=== PATIENT | male | born 1945 | race Caucasian/White ===

== ENCOUNTER 2017-06-11 18:50 | Inpatient (IN) | payer MEDICARE ==
[~2017-06-11] VITALS: Ht 188 cm; Wt 104.5 kg
[2017-06-11 18:54] VITALS: BP 138/81; PULSE 102; RESP 18; TEMP 97.8; O2SAT 98
--- NOTE | 2017-06-11 20:30 | PD ---
HPI Chief Complaint: Edema Time Seen by Provider: 20:19 Travel History International Travel<30 days: No Contact w/Intl Traveler<30days: No Traveled to known affect area: No History of Present Illness HPI 72-year-old male with non-small cell lung cancer on [place] presents to the emergency department for evaluation of a left lower extremity edema, erythema and pain that has worsened over the last day. Dr. Bennett is his oncologist. [facility] Social History Tobacco Use: No Allergies-Medications (Allergen,Severity, Reaction): Coded Allergies: No Known Allergies (Unverified , 06/11/17) Reported Meds & Prescriptions Reported Meds & Active Scripts Active Reported Zantac (Ranitidine HCl) 150 Mg Tab 150 Mg PO DAILY Lamisil (Terbinafine) 250 Mg Tab 250 Mg PO DAILY Tagrisso (Osimertinib Mesylate) 80 Mg Tablet 80 Mg PO DAILY Multiple Vitamin 1 Tab 1 Tab PO DAILY Review of Systems Except as stated in HPI: all other systems reviewed are Neg Physical Exam Narrative GENERAL: Well-developed, well-nourished in no apparent distress SKIN: Focused skin assessment warm/dry. HEAD: Atraumatic. Normocephalic. EYES: Pupils equal and round. No scleral icterus. No injection or drainage. ENT: No nasal bleeding or discharge. Mucous membranes pink and moist. NECK: Trachea midline. No JVD. CARDIOVASCULAR: Regular rate and rhythm. No murmur appreciated. RESPIRATORY: No accessory muscle use. Clear to auscultation. Breath sounds equal bilaterally. GASTROINTESTINAL: Abdomen soft, non-tender, nondistended. Hepatic and splenic margins not palpable. MUSCULOSKELETAL: No obvious deformities. No clubbing. No ecchymosis Left lower extremity-edema, erythema and tenderness palpation from the groin to distal lower extremity, focused on the anterior medial aspect of thigh and leg. +2 pitting edema. Dorsalis pedis pulse present. Neurovascularly intact NEUROLOGICAL: Awake and alert. No obvious cranial nerve deficits. Motor grossly within normal limits. Normal speech. PSYCHIATRIC: Appropriate mood and affect; insight and judgment normal. Data Data Last Documented VS Vital Signs Date Time Temp Pulse Resp B/P (MAP) Pulse Ox O2 Delivery O2 Flow Rate FiO2 06/11/17 22:31 98.9 126 20 114/59 (77) 98 Room Air Orders Orders Us Leg Venous Doppler (06/11/17 ) Complete Blood Count With Diff (06/11/17 20:30) Comprehensive Metabolic Panel (06/11/17 20:30) Act Partial Throm Time (Ptt) (06/11/17 20:30) Prothrombin Time / Inr (Pt) (06/11/17 20:30) Heparin Inj (Heparin Inj) (06/11/17 21:45) Heparin-D5w 25,000 U/250 Ml (Heparin-D5w (06/11/17 21:45) Cbc No Diff, Includes Plts (06/14/17 06:00) Act Partial Throm Time (Ptt) (06/12/17 04:37) Admit Order (Ed Use Only) (06/11/17 22:26) Labs Laboratory Tests Test 06/11/17 20:30 White Blood Count 4.9 TH/MM3 Red Blood Count 3.66 MIL/MM3 Hemoglobin 11.0 GM/DL Hematocrit 32.7 % Mean Corpuscular Volume 89.3 FL Mean Corpuscular Hemoglobin 30.2 PG Mean Corpuscular Hemoglobin Concent 33.8 % Red Cell Distribution Width 15.3 % Platelet Count 105 TH/MM3 Mean Platelet Volume 7.9 FL Neutrophils (%) (Auto) 77.7 % Lymphocytes (%) (Auto) 15.1 % Monocytes (%) (Auto) 6.4 % Eosinophils (%) (Auto) 0.5 % Basophils (%) (Auto) 0.3 % Neutrophils # (Auto) 3.8 TH/MM3 Lymphocytes # (Auto) 0.7 TH/MM3 Monocytes # (Auto) 0.3 TH/MM3 Eosinophils # (Auto) 0.0 TH/MM3 Basophils # (Auto) 0.0 TH/MM3 CBC Comment DIFF FINAL Differential Comment Prothrombin Time 10.0 SEC Prothromb Time International Ratio 1.0 RATIO Activated Partial Thromboplast Time 26.6 SEC Blood Urea Nitrogen 29 MG/DL Creatinine 1.31 MG/DL Random Glucose 125 MG/DL Total Protein 6.5 GM/DL Albumin 2.5 GM/DL Calcium Level 7.7 MG/DL Alkaline Phosphatase 92 U/L Aspartate Amino Transf (AST/SGOT) 46 U/L Alanine Aminotransferase (ALT/SGPT) 73 U/L Total Bilirubin 0.4 MG/DL Sodium Level 136 MEQ/L Potassium Level 4.0 MEQ/L Chloride Level 103 MEQ/L Carbon Dioxide Level 28.4 MEQ/L Anion Gap 5 MEQ/L Estimat Glomerular Filtration Rate 53 ML/MIN MDM Medical Decision Making Medical Screen Exam Complete: Yes Emergency Medical Condition: Yes Differential Diagnosis DVT, cellulitis, peripheral artery disease Narrative Course 72-year-old male with non-small cell carcinoma of the lung presents emergency department for evaluation of his left lower extremity pain and swelling that is worsened over the last 24 hours. Vital signs are stable. CBC & BMP Diagram 06/11/17 20:30 Total Protein 6.5, Albumin 2.5 L, Calcium Level 7.7 L, Alkaline Phosphatase 92, Aspartate Amino Transf (AST/SGOT) 46 H, Alanine Aminotransferase (ALT/SGPT) 73, Total Bilirubin 0.4 Last Impressions Lower Extremity Ultrasound 06/11/17 0000 Signed Impressions: Service Date/Time: Sunday, June 11, 2017 21:16 - CONCLUSION: Extensive deep venous thrombosis as above. Peter aG MD FACR It appears that patient has an extensive DVT to the left lower extremity. I discussed the findings with the family and patient. Patient likely has a DVT secondary to his history of cancer and recent immobilization. Note that he has no history of blood clots previously. Heparin initiated. Patient should be admitted for evaluation and treatment, bridge to Coumadin or appropriate NOACs. Diagnosis Primary Impression: DVT (deep venous thrombosis) Qualified Codes: I82.412 - Acute embolism and thrombosis of left femoral vein Admitting Information Admitting Physician Requests: Admit Condition: Stable Ayde Licona Jun 11, 2017 20:30
[2017-06-11] MEDS ORDERED: MULTTAB67 PO (20:32)
[2017-06-11] MEDS ORDERED: LAMI250T PO (20:32)
[2017-06-11] MEDS ORDERED: OSIM80TA PO (20:32)
[2017-06-11] MEDS ORDERED: ZANT150T2 PO (20:32)
[2017-06-11 21:01] LABS: AUTOMATED NEUTROPHIL # 3.8 TH/MM3 (1.8-7.7); BASOPHIL % 0.3 % (0.0-2.0); EOSINOPHIL % 0.5 % (0.0-4.0); HEMATOCRIT 32.7 % (39.0-51.0); LYMPH % 15.1 % (9.0-44.0); LYMPHOCYTE # 0.7 TH/MM3 (1.0-4.8); MEAN CELL VOLUME 89.3 FL (80.0-100.0); MEAN CORPUSCULAR HEMOGLOBIN 30.2 PG (27.0-34.0); MEAN CORPUSCULAR HGB CONC 33.8 % (32.0-36.0); MEAN PLATELET VOLUME 7.9 FL (7.0-11.0); MONO % 6.4 % (0.0-8.0); MONOCYTE # 0.3 TH/MM3 (0-0.9); NEUT % 77.7 % (16.0-70.0); PLATELET COUNT 105 TH/MM3 (150-450); RED BLOOD COUNT 3.66 MIL/MM3 (4.50-5.90); RED CELL DISTRIBUTION WIDTH 15.3 % (11.6-17.2); WHITE BLOOD COUNT 4.9 TH/MM3 (4.0-11.0)
[2017-06-11 21:12] LABS: ALBUMIN 2.5 GM/DL (3.4-5.0); AST (GOT) 46 U/L (15-37); BICARBONATE 28.4 MEQ/L (21.0-32.0); BLOOD UREA NITROGEN 29 MG/DL (7-18); CALCIUM 7.7 MG/DL (8.5-10.1); CHLORIDE 103 MEQ/L (98-107); CREATININE 1.31 MG/DL (0.60-1.30); GLOMERULAR FILTRATION RATE 53 ML/MIN (>89); GLUCOSE,RANDOM 125 MG/DL (74-106); SODIUM (NA) 136 MEQ/L (136-145)
[2017-06-11 21:13] LABS: ALT (GPT) 73 U/L (12-78)
[2017-06-11 21:15] LABS: ALKALINE PHOSPHATASE 92 U/L (45-117); TOTAL BILIRUBIN ADULT 0.4 MG/DL (0.2-1.0); TOTAL PROTEIN 6.5 GM/DL (6.4-8.2)
[2017-06-11] MEDS ORDERED: HEPARIN-D5W 25,000 U/250 ML 250 ML IV PRN (21:45)
[2017-06-11] MEDS ORDERED: HEPARIN SODIUM - IV 10,000 UNITS/10 ML VIAL IV ONE (21:45)
--- NOTE | 2017-06-11 21:54 | RADRPT ---
EXAM DATE/TIME: 06/11/2017 21:16 [facility] COMPARISON: No previous studies available for comparison. INDICATIONS : Left leg swelling. MEDICAL HISTORY : Lung cancer. SURGICAL HISTORY : Prostate biopsy. Tonsillectomy. Colonoscopy. ENCOUNTER: Initial ACUITY: 2 day PAIN SCORE: 4/10 LOCATION: Left leg. TECHNIQUE: Venous ultrasound of the leg was performed from the inguinal ligament to the proximal calf. Real-sydney e, color Doppler and spectral tracing, compression and augmentation techniques were used. FINDINGS: Extensive thrombus beginning below the knee extending to the inguinal ligament. The greater saphenou s vein is patent. CONCLUSION: Extensive deep venous thrombosis as above. Peter Ga MD FACR on June 11, 2017 at 21:50 Board Certified Radiologist. This report was verified electronically.
[2017-06-11] MEDS ORDERED: LACTULOSE SYRUP 20 GM/30 ML CUP PO PRN (22:30)
[2017-06-11] MEDS ORDERED: SENNOSIDES 8.6 MG TAB PO PRN (22:30)
[2017-06-11] MEDS ORDERED: MAGNESIUM HYDROXIDE SUSP 30 ML CUP PO PRN (22:30)
[2017-06-11] MEDS ORDERED: MORPHINE SULFATE 2 MG/ML SYRINGE IV PUSH PRN (22:30)
[2017-06-11] MEDS ORDERED: BISACODYL 10 MG SUPP RECTAL PRN (22:30)
[2017-06-11] MEDS ORDERED: ACETAMINOPHEN 325 MG TAB PO PRN (22:30)
[2017-06-11] MEDS ORDERED: ONDANSETRON HCL 4 MG/2 ML VIAL IVP PRN (22:30)
[2017-06-11] MEDS ORDERED: SODIUM CHLORIDE 0.9% FLUSH 10 ML FLUSH IV FLUSH PRN (22:30)
[2017-06-11] MEDS ORDERED: ACETAMINOPHEN/HYDROcodone 325 MG/5 MG TAB PO PRN (22:30)
[2017-06-11 22:31] VITALS: BP 114/59; PULSE 126; RESP 20; TEMP 98.9; O2SAT 98
--- NOTE | 2017-06-11 22:33 | HHI.HP ---
[facility] Atilio Murrell M.D. Admission Diagnosis extensive DVT R leg Diagnoses: (1) DVT (deep venous thrombosis) Diagnosis: Principal (2) Lung cancer Diagnosis: Principal (3) Renal insufficiency Diagnosis: Principal Travel History International Travel<30 Days: No Contact w/Intl Traveler <30 Da: No Traveled to Known Affected Are: No History of Present Illness This is a 72-year-old male with a PMH of Lung CA w/ Brain Mets who presented to the ER w/ complaints of left lower extremity pain and swelling. States symptoms started acutely today. Pain is severe, 10/10, constant, non-radiating , worse w/ movement. Denies fever, chills, chest pain, SOB or injury/trauma. Follows w/ Dr. Bennett for Lung CA, currently on Tagrisso. On arrival, BP 138/81 , HR 102, O2 sat 98% on RA, Afebrile. CBC essentially at baseline, platelets 105, previously 92 on 06/01/2017. Chemistry also at baseline, creatinine 1.31, previously 1.33 on 06/01/2017. INR 1.0. Doppler LE with extensive deep venous thrombosis. Started on Heparin gtt in ER. Pt denies previous h/o DVT. Review of Systems Except as stated in HPI: all other systems reviewed are Neg ROS: 14 point review of systems otherwise negative. Past Family Social History Past Medical History PMH: Lung CA w/ Brain Mets Past Surgical History PAST SURGICAL HISTORY: Tonsillectomy, Prostate Biopsy, Colonoscopy Allergies: Coded Allergies: No Known Allergies (Unverified , 06/11/17) Family History PAST FAMILY HISTORY: Reviewed. No h/o DM or CAD Social History PAST SOCIAL HISTORY: Negative for alcohol, tobacco or drugs. Physical Exam Vital Signs Vital Signs Date Time Temp Pulse Resp B/P (MAP) Pulse Ox O2 Delivery O2 Flow Rate FiO2 06/11/17 22:31 98.9 126 20 114/59 (77) 98 Room Air 06/11/17 18:54 97.8 102 18 138/81 (100) 98 Physical Exam PE: GENERAL: Very pleasant elderly white male in no acute distress. HEENT: PERRLA, EOMI. No scleral icterus or conjunctival pallor. No lid lag or facial droop. CARDIOVASCULAR: Regular rate and rhythm. No obvious murmurs to auscultation. No chest tenderness to palpation. RESPIRATORY: No obvious rhonchi or wheezing. Clear to auscultation. Breath sounds equal bilaterally. GASTROINTESTINAL: Abdomen soft, non-tender, nondistended. BS normal. MUSCULOSKELETAL: Extremities without clubbing, cyanosis. 2+ edema. No obvious deformities. Left leg with significant edema, warmth, pulses intact. NEUROLOGICAL: Awake, alert and oriented x4. No focal neurologic deficits. Moving both upper and lower extremities spontaneously. Laboratory Laboratory Tests Test 06/11/17 20:30 White Blood Count 4.9 Red Blood Count 3.66 Hemoglobin 11.0 Hematocrit 32.7 Mean Corpuscular Volume 89.3 Mean Corpuscular Hemoglobin 30.2 Mean Corpuscular Hemoglobin Concent 33.8 Red Cell Distribution Width 15.3 Platelet Count 105 Mean Platelet Volume 7.9 Neutrophils (%) (Auto) 77.7 Lymphocytes (%) (Auto) 15.1 Monocytes (%) (Auto) 6.4 Eosinophils (%) (Auto) 0.5 Basophils (%) (Auto) 0.3 Neutrophils # (Auto) 3.8 Lymphocytes # (Auto) 0.7 Monocytes # (Auto) 0.3 Eosinophils # (Auto) 0.0 Basophils # (Auto) 0.0 CBC Comment DIFF FINAL Differential Comment Prothrombin Time 10.0 Prothromb Time International Ratio 1.0 Activated Partial Thromboplast Time 26.6 Blood Urea Nitrogen 29 Creatinine 1.31 Random Glucose 125 Total Protein 6.5 Albumin 2.5 Calcium Level 7.7 Alkaline Phosphatase 92 Aspartate Amino Transf (AST/SGOT) 46 Alanine Aminotransferase (ALT/SGPT) 73 Total Bilirubin 0.4 Sodium Level 136 Potassium Level 4.0 Chloride Level 103 Carbon Dioxide Level 28.4 Anion Gap 5 Estimat Glomerular Filtration Rate 53 Result Diagram: 06/11/17202906/11/172029 Caprini VTE Risk Assessment Caprini VTE Risk Assessment: Mod/High Risk (score >= 2) Caprini Risk Assessment Model Point Value = 1 Point Value = 2 Point Value = 3 Point Value = 5 Age 41-60 Minor surgery BMI > 25 kg/m2 Swollen legs Varicose veins or History of unexplained or recurrent spontaneous Oral contraceptives or hormone replacement Sepsis (< 1 month) Serious lung disease, including pneumonia (< 1 month) Abnormal pulmonary function Acute myocardial infarction Congestive heart failure (< 1 month) History of inflammatory bowel disease Medical patient at bed rest Age 61-74 Arthroscopic surgery Major open surgery (> 45 min) Laparoscopic surgery (> 45 min) Malignancy Confined to bed (> 72 hours) Immobilizing plaster cast Central venous access Age >= 75 History of VTE Family history of VTE Factor V Leiden Prothrombin [id number] Lupus anticoagulant Anticardiolipin antibodies Elevated serum homocysteine Heparin-induced thrombocytopenia Other congenital or acquired thrombophilia Stroke (< 1 month) Elective arthroplasty Hip, pelvis, or leg fracture Acute spinal cord injury (< 1 month) Prophylaxis Regimen Total Risk Factor Score Risk Level Prophylaxis Regimen 0-1 Low Early ambulation 2 Moderate Order ONE of the following: *Sequential Compression Device (SCD) *Heparin 5000 units SQ BID 3-4 Higher Order ONE of the following medications: *Heparin 5000 units SQ TID *Enoxaparin/Lovenox 40 mg SQ daily (WT < 150 kg, CrCl > 30 mL/min) *Enoxaparin/Lovenox 30 mg SQ daily (WT < 150 kg, CrCl > 10-29 mL/min) *Enoxaparin/Lovenox 30 mg SQ BID (WT < 150 kg, CrCl > 30 mL/min) AND/OR *Sequential Compression Device (SCD) 5 or more Highest Order ONE of the following medications: *Heparin 5000 units SQ TID (Preferred with Epidurals) *Enoxaparin/Lovenox 40 mg SQ daily (WT < 150 kg, CrCl > 30 mL/min) *Enoxaparin/Lovenox 30 mg SQ daily (WT < 150 kg, CrCl > 10-29 mL/min) *Enoxaparin/Lovenox 30 mg SQ BID (WT < 150 kg, CrCl > 30 mL/min) AND *Sequential Compression Device (SCD) Assessment and Plan Problem List: (1) DVT (deep venous thrombosis) ICD Code: I82.409 - Acute embolism and thrombosis of unspecified deep veins of unspecified lower extremity Status: Acute (2) Renal insufficiency ICD Code: N28.9 - Disorder of kidney and ureter, unspecified (3) Lung cancer ICD Code: C34.90 - Malignant neoplasm of unspecified part of unspecified bronchus or lung Assessment and Plan A/P: 1. DVT: Acute. Doppler LE w/ extensive DVT of LLE, images reviewed by me, likely secondary to underling CA. Started on Heparin gtt in ER. In light of h/ o Lung CA w/ CRIB CLERK Mets, will check CT Head to eval for possible hemorrhage/ edema. Consult Dr. Bennett for further recommendations regarding anticoagulation. No c/o chest pain or SOB. 2. Lung CA w/ Mets: Follows w/ Dr Bennett, tapered off Decadron, plan for outpatient MRI 06/30/17, will proceed w/ CT Head at this time, possible MRI after eval by Oncology. 3. Renal Insufficiency: Acute on Chronic. Creatinine 1.31, previously 1.33 on 06/01/2017 IVF for hydration, repeat labs in a.m. 4. DVT Prophylaxis: On Heparin gtt for acute DVT as above. 5. Social work for DC planning as needed. 6. Case discussed at length with the ER physician, lab/record/imaging reviewed by me. CT Head reviewed by me...right frontal and right parietal intra-axial masses no longer seen, minimal residual right vasogenic edema, no acute intracranial hemorrhage. Will continue w/ anticoagulation as above. Physician Certification 2 Midnight Certification Type: Admission for Inpatient Services Order for Inpatient Services The services are ordered in accordance with Medicare regulations or non- Medicare payer requirements, as applicable. In the case of services not specified as inpatient-only, they are appropriately provided as inpatient services in accordance with the 2-midnight benchmark. Estimated LOS (days): 2 days is the estimated time the patient will need to remain in the hospital, assuming treatment plan goals are met and no additional complications. Post-Hospital Plan: Not yet determined Problem Qualifiers (1) DVT (deep venous thrombosis): Qualified Codes: I82.412 - Acute embolism and thrombosis of left femoral vein Kristi Maguire MD Jun 11, 2017 22:33
--- NOTE | 2017-06-11 23:32 | RADRPT ---
EXAM DATE/TIME: 06/11/2017 23:14 [facility] COMPARISON: CT SIMULATION, May 04, 2017, 12:56. INDICATIONS : Lung cancer, evaluate metastatic disease. RADIATION DOSE: 38.86 CTDIvol (mGy) MEDICAL HISTORY : Carcinoma, lung. SURGICAL HISTORY : None. ENCOUNTER: Initial ACUITY: 1 day PAIN SCALE: 0/10 LOCATION: cranial TECHNIQUE: Multiple contiguous axial images were obtained of the head. Using automated exposure control and adj ustment of the mA and/or kV according to patient size, radiation dose was kept as low as reasonably a chievable to obtain optimal diagnostic quality images. DICOM format image data is available electro nically for review and comparison. FINDINGS: CEREBRUM: There is minimal residual hypodensity in the posterior right frontal white matter. The other areas of previously seen vasogenic edema in the right parietal and right frontal lobes on the scan of 05/04/19 18 are not seen on the current study. Discrete defined masses are no longer seen. No evidence of mass effect. Ventricles within normal limits. No acute intracranial hemorrhage or extra axial fluid colle ction. Vega matter-white matter degeneration within normal limits. POSTERIOR FOSSA: The cerebellum and brainstem are intact. The 4th ventricle is midline. The cerebellopontine angle i s unremarkable. EXTRACRANIAL: The visualized portion of the orbits is intact. SKULL: The calvaria is intact. No evidence of skull fracture. CONCLUSION: Right frontal and right parietal intra-axial masses are no longer seen. Minimal residual of right par ietal vasogenic edema. No mass effect. No evidence of acute intracranial hemorrhage or acute infarct. Roderick Jauregui MD on June 11, 2017 at 23:26 Board Certified Radiologist. This report was verified electronically.
[2017-06-12] VITALS (8 sets, daily range): BP systolic 99–139; BP diastolic 52–75; PULSE 79–151; RESP 17–18; TEMP 97.9–98.9; O2SAT 95–97
[2017-06-12 04:39] LABS: AUTOMATED NEUTROPHIL # 3.5 TH/MM3 (1.8-7.7); BASOPHIL % 0.3 % (0.0-2.0); EOSINOPHIL % 0.5 % (0.0-4.0); HEMOGLOBIN 10.3 GM/DL (13.0-17.0); LYMPH % 17.3 % (9.0-44.0); LYMPHOCYTE # 0.8 TH/MM3 (1.0-4.8); MEAN CELL VOLUME 88.7 FL (80.0-100.0); MEAN CORPUSCULAR HEMOGLOBIN 30.5 PG (27.0-34.0); MEAN CORPUSCULAR HGB CONC 34.4 % (32.0-36.0); MEAN PLATELET VOLUME 7.8 FL (7.0-11.0); MONO % 8.2 % (0.0-8.0); MONOCYTE # 0.4 TH/MM3 (0-0.9); NEUT % 73.7 % (16.0-70.0); PLATELET COUNT 97 TH/MM3 (150-450); RED BLOOD COUNT 3.39 MIL/MM3 (4.50-5.90); RED CELL DISTRIBUTION WIDTH 15.3 % (11.6-17.2); WHITE BLOOD COUNT 4.7 TH/MM3 (4.0-11.0)
[2017-06-12 05:03] LABS: ALT (GPT) 59 U/L (12-78); AST (GOT) 30 U/L (15-37); BICARBONATE 24.4 MEQ/L (21.0-32.0); BLOOD UREA NITROGEN 26 MG/DL (7-18); CALCIUM 7.6 MG/DL (8.5-10.1); CHLORIDE 106 MEQ/L (98-107); GLOMERULAR FILTRATION RATE 59 ML/MIN (>89); GLUCOSE,RANDOM 127 MG/DL (74-106); SODIUM (NA) 139 MEQ/L (136-145)
[2017-06-12 05:05] LABS: ALKALINE PHOSPHATASE 78 U/L (45-117); TOTAL BILIRUBIN ADULT 0.5 MG/DL (0.2-1.0); TOTAL PROTEIN 5.7 GM/DL (6.4-8.2)
--- NOTE | 2017-06-12 08:30 | HHI.PR ---
Subjective Remarks This is a 72-year-old male with a PMH of Lung CA w/ Brain Mets who presented to the ER w/ complaints of left lower extremity pain and swelling. States symptoms started acutely today. Pain is severe, 10/10, constant, non- radiating, worse w/ movement. Denies fever, chills, chest pain, SOB or injury/trauma. Follows w/ Dr. Bennett for Lung CA, currently on Tagrisso. On arrival, BP 138/81, HR 102, O2 sat 98% on RA, Afebrile. CBC essentially at baseline, platelets 105, previously 92 on 06/01/2017. Chemistry also at baseline, creatinine 1.31, previously 1.33 on 06/01/2017. INR 1.0. Doppler LE with extensive deep venous thrombosis. Started on Heparin gtt in ER. Pt denies previous h/o DVT. 06/12: Seen in his bedroom awaiting for drug regulatory affairs specialist consult, stable no nausea, vomit or diarrhea. Objective Vital Signs Date Time Temp Pulse Resp B/P (MAP) Pulse Ox O2 Delivery O2 Flow Rate FiO2 06/12/17 04:10 98.1 97 18 108/58 (75) 96 06/12/17 00:07 98.3 83 18 106/52 (70) 96 06/11/17 22:31 98.9 126 20 114/59 (77) 98 Room Air 06/11/17 18:54 97.8 102 18 138/81 (100) 98 I/O 06/11/17 06/11/17 06/11/17 06/12/17 06/12/17 06/12/17 07:00 15:00 23:00 07:00 15:00 23:00 Intake Total 240 ml Balance 240 ml Intake Oral 240 ml # Voids 1 # Bowel Movements 0 Result Diagram: 06/12/17 0416 06/12/17 0416 Imaging Last Impressions Lower Extremity Ultrasound 06/11/17 0000 Signed Impressions: Service Date/Time: Sunday, June 11, 2017 21:16 - CONCLUSION: Extensive deep venous thrombosis as above. Peter Ga MD FACR Head CT 06/11/17 0000 Signed Impressions: Service Date/Time: Sunday, June 11, 2017 23:14 - CONCLUSION: Right frontal and right parietal intra-axial masses are no longer seen. Minimal residual of right parietal vasogenic edema. No mass effect. No evidence of acute intracranial hemorrhage or acute infarct. Roderick Jaureugi MD Procedures None Other Results Laboratory Tests Test 06/11/17 20:30 06/12/17 04:16 Prothrombin Time 10.0 SEC Prothromb Time International Ratio 1.0 RATIO White Blood Count 4.7 TH/MM3 Red Blood Count 3.39 MIL/MM3 Hemoglobin 10.3 GM/DL Hematocrit 30.0 % Mean Corpuscular Volume 88.7 FL Mean Corpuscular Hemoglobin 30.5 PG Mean Corpuscular Hemoglobin Concent 34.4 % Red Cell Distribution Width 15.3 % Platelet Count 97 TH/MM3 Mean Platelet Volume 7.8 FL Neutrophils (%) (Auto) 73.7 % Lymphocytes (%) (Auto) 17.3 % Monocytes (%) (Auto) 8.2 % Eosinophils (%) (Auto) 0.5 % Basophils (%) (Auto) 0.3 % Neutrophils # (Auto) 3.5 TH/MM3 Lymphocytes # (Auto) 0.8 TH/MM3 Monocytes # (Auto) 0.4 TH/MM3 Eosinophils # (Auto) 0.0 TH/MM3 Basophils # (Auto) 0.0 TH/MM3 CBC Comment AUTO DIFF Differential Comment AUTO DIFF CONFIRMED Platelet Estimate LOW Platelet Morphology Comment NORMAL Activated Partial Thromboplast Time 55.5 SEC Blood Urea Nitrogen 26 MG/DL Creatinine 1.20 MG/DL Random Glucose 127 MG/DL Total Protein 5.7 GM/DL Albumin 2.0 GM/DL Calcium Level 7.6 MG/DL Alkaline Phosphatase 78 U/L Aspartate Amino Transf (AST/SGOT) 30 U/L Alanine Aminotransferase (ALT/SGPT) 59 U/L Total Bilirubin 0.5 MG/DL Sodium Level 139 MEQ/L Potassium Level 3.7 MEQ/L Chloride Level 106 MEQ/L Carbon Dioxide Level 24.4 MEQ/L Anion Gap 9 MEQ/L Estimat Glomerular Filtration Rate 59 ML/MIN Objective Remarks GENERAL: Very pleasant elderly white male in no acute distress. HEENT: PERRLA, EOMI. No scleral icterus or conjunctival pallor. No lid lag or facial droop. CARDIOVASCULAR: Regular rate and rhythm. No obvious murmurs to auscultation. No chest tenderness to palpation. RESPIRATORY: No obvious rhonchi or wheezing. Clear to auscultation. Breath sounds equal bilaterally. GASTROINTESTINAL: Abdomen soft, non-tender, nondistended. BS normal. MUSCULOSKELETAL: Extremities without clubbing, cyanosis. 2+ edema. No obvious deformities. Left leg with significant edema, warmth, pulses intact. NEUROLOGICAL: Awake, alert and oriented x4. No focal neurologic deficits. Moving both upper and lower extremities spontaneously. Medications and IVs Current Medications Medications (Trade) Dose Ordered Sig/Justin Route Start Time Stop Time Status Last Admin Heparin Sodium/ Dextrose 250 ml @ 18 mls/hr TITRATE PRN IV 06/11/17 21:45 06/11/17 22:10 (NS Flush) 2 ml UNSCH PRN IV FLUSH 06/11/17 22:30 (NS Flush) 2 ml BID IV FLUSH 06/12/17 09:00 (Zofran Inj) 4 mg Q6H PRN IVP 06/11/17 22:30 (Tylenol) 650 mg Q6H PRN PO 06/11/17 22:30 ([place] 5-325 Mg) 1 tab Q4H PRN PO 06/11/17 22:30 (Morphine Inj) 2 mg Q3H PRN IV PUSH 06/11/17 22:30 (Migdalia-Colace) 1 tab BID PO 06/12/17 09:00 (Milk Of Magnesia Liq) 30 ml Q12H PRN PO 06/11/17 22:30 (Senokot) 17.2 mg Q12H PRN PO 06/11/17 22:30 (Dulcolax Supp) 10 mg DAILY PRN RECTAL 06/11/17 22:30 (Lactulose Liq) 30 ml DAILY PRN PO 06/11/17 22:30 (Theragran) 1 tab DAILY PO 06/12/17 09:00 Patient Own Medication PT OWN MED: (Osimertinib Mesyl... DAILY PO 06/12/17 09:00 Future Hold (Pepcid) 20 mg DAILY PO 06/12/17 09:00 (Flu (Quadrivalent) Vaccine Inj) 0.5 ml ONCE ONCE IM 06/13/17 10:00 06/13/17 10:01 A/P Assessment and Plan (1) DVT (deep venous thrombosis) ICD Code: I82.409 - Acute embolism and thrombosis of unspecified deep veins of unspecified lower extremity Status: Acute (2) Renal insufficiency ICD Code: N28.9 - Disorder of kidney and ureter, unspecified (3) Lung cancer ICD Code: C34.90 - Malignant neoplasm of unspecified part of unspecified bronchus or lung 1. DVT: Acute. Doppler LE w/ extensive DVT of LLE, images reviewed by me, likely secondary to underling CA. Started on Heparin gtt in ER. In light of h/ o Lung CA w/ NUCLEAR SCIENTIST Mets, will check CT Head to eval for possible hemorrhage/ edema. Consult Dr. Bennett for further recommendations regarding anticoagulation. No c/o chest pain or SOB. 2. Lung CA w/ Mets: Follows w/ Dr Bennett, tapered off Decadron, plan for outpatient MRI 06/30/17, will proceed w/ CT Head at this time, possible MRI after eval by Oncology. 3. Renal Insufficiency: Acute on Chronic. Creatinine 1.31, previously 1.33 on 06/01/2017 IVF for hydration. DVT Prophylaxis: On Heparin gtt for acute DVT as above. Khang Mendoza MD Jun 12, 2017 08:30
[2017-06-12] MEDS: FAMOTIDINE 20 MG TAB PO SCH (08:43)
[2017-06-12] MEDS: MULTIVITAMIN TAB PO SCH (08:43)
[2017-06-12] MEDS: DOCUSATE SODIUM 50 MG/SENNA 8.6 MG TAB PO SCH ×2 (08:43→21:00)
[2017-06-12] MEDS: SODIUM CHLORIDE 0.9% FLUSH 10 ML FLUSH IV FLUSH SCH ×2 (08:45→21:00)
[2017-06-12] MEDS ORDERED: OSIMERTINIB MESYLATE 80 MG PO SCH (09:00)
--- NOTE | 2017-06-12 12:46 | MB ---
cc: Linda Velez MD,Khang Bennett,Wander MENSAH DATE: 06/12/2017 REFERRING PHYSICIAN: Dr. Khang Mohr. CHIEF COMPLAINT: Dr. Khang Mohr requests a consultation for Mr. Degroot regarding a stage IV non-small cell lung cancer with MINE WIRER metastatic disease and new left lower extremity deep vein thromboses. HISTORY OF PRESENT ILLNESS: Mr. Degroot is a 72-year-old man with a history of non-small cell lung cancer with exon mutation 21, diagnosed in 2014. He was treated with Tarceva until progression. He has developed MINE WIRER metastatic disease in April 2017, which was treated with stereotactic radiosurgery under the care of Dr. Ridley. He is under the care of Dr. Bennett. His most recent CT PET scan on 05/13/2017 shows improvement of post-radiation pneumonitis in the lung. There is some uptake in the left side of the manubrium. His extracranial disease appears to be well controlled. He was in the process of being tapered off Decadron for his MINE WIRER metastatic disease. He has had some steroid myopathy. Mr. Degroot has been less active because of steroid myopathy. He has been staying around on the couch, getting out of bed, but limited ambulation. He presented with left lower extremity edema, erythema, and pain that worsened over the last day. He underwent lower extremity imaging on 06/11/2017. The findings show extensive thrombus being below the knee to the inguinal ligament. The greater saphenous vein was patent. He was started on unfractionated heparin. He feels that the leg swelling is diminished. Noted is mild thrombocytopenia from 06/01/2017. He was thrombocytopenic on the day of the consultation. Interestingly, his hemoglobin is decreased. The greater saphenous vein was patent. Review of his labs show a normal CBC dated 01/19/2017. His white count was elevated from 05/17/2017. His platelet count was 220,000. On 06/01/2017, his platelet count had decreased to 92,000. Hemoglobin is normal. White blood cell count is 8.8. On day of admission, his hemoglobin is down to 11.0, platelet count 105, white blood cell count of 4.9. The day after, his hemoglobin went down further to 10.3 and platelet count of 97,000. He denies any bleeding. He denies any GI upset. He has some mild renal insufficiency that looks stable. His glucose is mildly elevated and calcium is decreased. His liver function has normalized. REVIEW OF SYSTEMS: Denies any headaches. No fevers, chills or night sweats. He has generalized weakness for which he was staying less active. The rest of his review of systems is negative. PAST MEDICAL HISTORY: Metastatic non-small cell lung cancer, history of prostate cancer, MINE WIRER metastatic disease. PAST SURGICAL HISTORY: Tonsillectomy, prostate biopsy, colonoscopy. ALLERGIES: NO KNOWN DRUG ALLERGIES. FAMILY HISTORY: No family history of cancer. SOCIAL HISTORY: He is , lives with his . Denies any tobacco, alcohol or illicit drug use. CURRENT MEDICATIONS: Include Migdalia-Colace, multivitamin, Pepcid, Zofran p.r.n., Graham p.r.n., unfractionated heparin. PHYSICAL EXAMINATION: VITAL SIGNS: Temperature 97.9, heart rate 105, respiratory rate 17, blood pressure 102/75, saturation 95%. GENERAL: Mr. Degroot is a well-developed, well-nourished, 72-year-old man in no acute distress. HEENT: His pupils are round, reactive to light and accommodation. Oropharynx is clear. NECK: Supple. LUNGS: Clear anteriorly. CARDIOVASCULAR: Reveals mild tachycardia. ABDOMEN: Benign. LOWER EXTREMITIES: With left leg more prominent than the right. There is 1+ pitting edema on the left and trace on the right. Good pulses. NEUROLOGIC: Nonfocal. LABORATORY DATA: As described above. CT of the head shows right frontoparietal mass is no longer seen. There is no evidence of acute intracranial hemorrhage or infarct. ASSESSMENT AND PLAN: Ms. Degroot is a 72-year-old man, well known patient to Dr. Wander Bennett with metastatic non-small cell lung cancer. He has MINE WIRER metastatic disease that was addressed with radiation. CT scan only shows there is some resolution. We discussed the development of left lower extremity deep vein thromboses provoked by his cancer and relative immobility. The immobility was attributed to the steroids, which he is being tapered. We discussed the options for anticoagulant therapy from Coumadin to low molecular weight heparin to a new oral anticoagulant Eliquis. His renal function is stable. He prefers to take an oral agent. We discussed in general terms the mechanism of action of the anticoagulant therapy. There is no reversal agent for the new oral anticoagulants at present. We will ensure that his renal function is stable. There is no overt sign of bleeding in order to start. I will take him off the unfractionated heparin and switch him to low molecular weight heparin. We will consult with case management in order to get him a free sample for the first month of Eliquis. We will start at 5 mg twice a day. In the meantime, we will monitor his CBC and platelet count. I will check in the morning. Anticipate that the hemoglobin would remain stable and hopefully platelet count would increase. Anticipate we could discharge him tomorrow pending stability of the CBC. There are no overt signs of bleeding. Mr. Degroot's questions were answered to his satisfaction. Information on Eliquis will be provided. MD GRICELDA Ramsey/PREMA , 12:09 PM , 12:45 PM
[2017-06-12] MEDS: ENOXAPARIN SODIUM 100 MG/ML SYRINGE SQ SCH (13:25)
[2017-06-13] MEDS: ENOXAPARIN SODIUM 100 MG/ML SYRINGE SQ SCH (00:53)
[2017-06-13 04:50] VITALS: BP 93/52; PULSE 148; RESP 17; TEMP 98.1; O2SAT 96
[2017-06-13] MEDS ORDERED: SODIUM CHLORID 0.9% 500 ML INJ 500 ML IV ONE (05:00)
[2017-06-13] MEDS: SODIUM CHLOR 0.9% 1000 ML INJ 1,000 ML IV SCH ×2 (05:08→12:45)
[2017-06-13 05:41] VITALS: PULSE 93
[2017-06-13 08:00] VITALS: BP 131/58; PULSE 93; RESP 17; TEMP 98.2; O2SAT 92
[2017-06-13] MEDS: SODIUM CHLORIDE 0.9% FLUSH 10 ML FLUSH IV FLUSH SCH (08:51)
[2017-06-13] MEDS: FAMOTIDINE 20 MG TAB PO SCH (08:52)
[2017-06-13] MEDS: MULTIVITAMIN TAB PO SCH (08:52)
[2017-06-13] MEDS: DOCUSATE SODIUM 50 MG/SENNA 8.6 MG TAB PO SCH (08:52)
[2017-06-13] MEDS ORDERED: INFLUENZA VIRUS VACCINE (QUADRIVALENT) 0.5 ML SYR IM ONE (10:00)
[2017-06-13 12:36] VITALS: BP 116/67; PULSE 88; RESP 18; TEMP 97.9; O2SAT 97
--- NOTE | 2017-06-13 13:11 | PD.ONC.PN ---
Subjective Subjective Remarks Afebrile overnight Patient reports he feels great and is looking forward to going home States his swelling is much improved in the left lower extremity Objective Data Date Time Temp Pulse Resp B/P (MAP) Pulse Ox O2 Delivery O2 Flow Rate FiO2 06/13/17 12:36 97.9 88 18 116/67 (83) 97 06/13/17 08:00 98.2 93 17 131/58 (82) 92 06/13/17 05:41 93 06/13/17 04:50 98.1 148 17 93/52 (66) 96 06/12/17 23:45 98.9 101 18 125/58 (80) 95 06/12/17 19:45 98.1 94 18 139/71 (93) 97 06/12/17 16:00 98.2 148 17 99/59 (72) 95 06/13/17 06/13/17 06/13/17 07:00 15:00 23:00 Intake Total 480 ml Balance 480 ml Result Diagram: 06/12/17 0416 06/12/17 0416 Administered Medications Medications (Trade) Dose Ordered Sig/Justin Route PRN Reason Start Time Stop Time Status Last Admin Dose Admin Sodium Chloride (NS Flush) 2 ml BID IV FLUSH 06/12/17 09:00 06/12/17 21:00 Senna/Docusate Sodium (Migdalia-Colace) 1 tab BID PO 06/12/17 09:00 06/13/17 08:52 Multivitamins (Theragran) 1 tab DAILY PO 06/12/17 09:00 06/13/17 08:52 Famotidine (Pepcid) 20 mg DAILY PO 06/12/17 09:00 06/13/17 08:52 Sodium Chloride 1,000 ml @ 125 mls/hr Q8H IV 06/13/17 05:00 06/13/17 05:08 Objective Remarks GENERAL: Older gentleman, walking around his room in no obvious distress SKIN: Warm and dry. HEAD: Normocephalic. EYES: No injection or drainage. NECK: Supple, trachea midline. CARDIOVASCULAR: Regular rate and rhythm without murmurs. RESPIRATORY: Breath sounds equal bilaterally. No accessory muscle use. GASTROINTESTINAL: Abdomen soft, non-tender, nondistended. EXTREMITIES: 3+ edema to left lower extremity MUSCULOSKELETAL: Adequate muscle tone. NEUROLOGICAL: No obvious focal deficit. Awake, alert, and oriented x3. Assessment/Plan Problem List: (1) Lung cancer ICD Codes: C34.90 - Malignant neoplasm of unspecified part of unspecified bronchus or lung Plan: --Future chemo will be discussed outpatient with Dr. Bennett Hx/Workup: The patient was originally diagnosed with lung cancer in 2014. He was treated with Tarceva until progression. In April 2017 he developed WEIGHER AND CHARGER metastatic disease and was treated with stereotactic radiosurgery under the care of Dr. Ridley. His most recent CT PET scan in May showed improvement of postradiation pneumonitis in the lung. He has been less active due to steroid myopathy. He presents with left lower extremity edema and pain (2) DVT (deep venous thrombosis) ICD Codes: I82.409 - Acute embolism and thrombosis of unspecified deep veins of unspecified lower extremity Status: Acute Plan: --Provoked due to cancer, immobility --We will have patient take Eliquis 5 mg twice daily for treatment Assessment 72-year-old male with diagnosis of metastatic lung cancer admitted with DVT to the left lower extremity Plan 1. We will switch patient from Lovenox to Eliquis today. 2. I discussed with him that due to the current dosing of the Lovenox, we will stretch out his dose by 1 hour so that he can take the Eliquis during times when he is awake during the day. 3. Check CBC today. If stable he is clear for discharge from oncology standpoint 4. We discussed that he should follow-up in clinic one day later this week to check CBC. Attending Statement The exam, history, and the medical decision-making described in the above note were completed with the assistance of the mid-level provider. I reviewed and agree with the findings presented. I attest that I had a [id number] encounter with the patient on the same day, and personally performed and documented my assessment and findings in the medical record. Pt ok for DC from heme/onc standpoint. Pending to start dose of Eliquis late this afternoon. Next dose OK for AM 06/14/17. Rx for Eliquis and sample card at pt's bedside, plans to fill this afternoon. Plan to fu w/ Oncology clinic w/ Dr. Bennett this week. Problem Qualifiers (1) DVT (deep venous thrombosis): Qualified Codes: I82.412 - Acute embolism and thrombosis of left femoral vein Bird,Lindseyjoseph HANCOCK Jun 13, 2017 13:11 Linda Velez MD Jun 13, 2017 13:30
[2017-06-13] MEDS ORDERED: APIX5TAB PO (13:27)
[2017-06-13 13:45] LABS: AUTOMATED NEUTROPHIL # 4.2 TH/MM3 (1.8-7.7); BASOPHIL % 0.3 % (0.0-2.0); EOSINOPHIL % 0.4 % (0.0-4.0); HEMATOCRIT 31.5 % (39.0-51.0); HEMOGLOBIN 10.5 GM/DL (13.0-17.0); LYMPH % 13.9 % (9.0-44.0); LYMPHOCYTE # 0.8 TH/MM3 (1.0-4.8); MEAN CELL VOLUME 89.7 FL (80.0-100.0); MEAN CORPUSCULAR HGB CONC 33.5 % (32.0-36.0); MEAN PLATELET VOLUME 7.8 FL (7.0-11.0); MONO % 8.5 % (0.0-8.0); MONOCYTE # 0.5 TH/MM3 (0-0.9); NEUT % 76.9 % (16.0-70.0); PLATELET COUNT 166 TH/MM3 (150-450); RED BLOOD COUNT 3.51 MIL/MM3 (4.50-5.90); WHITE BLOOD COUNT 5.4 TH/MM3 (4.0-11.0)
[2017-06-13] MEDS ORDERED: APIXABAN 5 MG TABLET PO SCH (14:00)
--- NOTE | 2017-06-13 15:21 | HHI.PR ---
Subjective Remarks This is a 72-year-old male with a PMH of Lung CA w/ Brain Mets who presented to the ER w/ complaints of left lower extremity pain and swelling. States symptoms started acutely today. Pain is severe, 10/10, constant, non- radiating, worse w/ movement. Denies fever, chills, chest pain, SOB or injury/trauma. Follows w/ Dr. Bennett for Lung CA, currently on Tagrisso. On arrival, BP 138/81, HR 102, O2 sat 98% on RA, Afebrile. CBC essentially at baseline, platelets 105, previously 92 on 06/01/2017. Chemistry also at baseline, creatinine 1.31, previously 1.33 on 06/01/2017. INR 1.0. Doppler LE with extensive deep venous thrombosis. Started on Heparin gtt in ER. Pt denies previous h/o DVT. 06/12: Seen in his bedroom awaiting for end user support specialist consult. 06/13: Stable from environmental permitting specialist standpoint, no nausea, vomit or diarrhea recommended for discharge to Home now on Eliquis. Objective Vital Signs Date Time Temp Pulse Resp B/P (MAP) Pulse Ox O2 Delivery O2 Flow Rate FiO2 06/13/17 12:36 97.9 88 18 116/67 (83) 97 06/13/17 08:00 98.2 93 17 131/58 (82) 92 06/13/17 05:41 93 06/13/17 04:50 98.1 148 17 93/52 (66) 96 06/12/17 23:45 98.9 101 18 125/58 (80) 95 06/12/17 19:45 98.1 94 18 139/71 (93) 97 06/12/17 16:00 98.2 148 17 99/59 (72) 95 I/O 06/12/17 06/12/17 06/12/17 06/13/17 06/13/17 06/13/17 07:00 15:00 23:00 07:00 15:00 23:00 Intake Total 240 ml 480 ml 480 ml Balance 240 ml 480 ml 480 ml Intake Oral 240 ml 480 ml 480 ml # Voids 1 5 3 # Bowel Movements 0 0 0 Result Diagram: 06/13/17 1315 06/12/17 0416 Imaging Last Impressions Lower Extremity Ultrasound 06/11/17 0000 Signed Impressions: Service Date/Time: Sunday, June 11, 2017 21:16 - CONCLUSION: Extensive deep venous thrombosis as above. Peter Ga MD FACR Head CT 06/11/17 0000 Signed Impressions: Service Date/Time: Sunday, June 11, 2017 23:14 - CONCLUSION: Right frontal and right parietal intra-axial masses are no longer seen. Minimal residual of right parietal vasogenic edema. No mass effect. No evidence of acute intracranial hemorrhage or acute infarct. Roderick Jauregui MD Procedures None Other Results Laboratory Tests Test 06/11/17 20:30 06/12/17 04:16 06/12/17 10:44 06/13/17 13:15 Prothrombin Time 10.0 SEC Prothromb Time International Ratio 1.0 RATIO Platelet Estimate LOW Platelet Morphology Comment NORMAL Blood Urea Nitrogen 26 MG/DL Creatinine 1.20 MG/DL Random Glucose 127 MG/DL Total Protein 5.7 GM/DL Albumin 2.0 GM/DL Calcium Level 7.6 MG/DL Alkaline Phosphatase 78 U/L Aspartate Amino Transf (AST/SGOT) 30 U/L Alanine Aminotransferase (ALT/SGPT) 59 U/L Total Bilirubin 0.5 MG/DL Sodium Level 139 MEQ/L Potassium Level 3.7 MEQ/L Chloride Level 106 MEQ/L Carbon Dioxide Level 24.4 MEQ/L Anion Gap 9 MEQ/L Estimat Glomerular Filtration Rate 59 ML/MIN Activated Partial Thromboplast Time 60.4 SEC White Blood Count 5.4 TH/MM3 Red Blood Count 3.51 MIL/MM3 Hemoglobin 10.5 GM/DL Hematocrit 31.5 % Mean Corpuscular Volume 89.7 FL Mean Corpuscular Hemoglobin 30.0 PG Mean Corpuscular Hemoglobin Concent 33.5 % Red Cell Distribution Width 15.0 % Platelet Count 166 TH/MM3 Mean Platelet Volume 7.8 FL Neutrophils (%) (Auto) 76.9 % Lymphocytes (%) (Auto) 13.9 % Monocytes (%) (Auto) 8.5 % Eosinophils (%) (Auto) 0.4 % Basophils (%) (Auto) 0.3 % Neutrophils # (Auto) 4.2 TH/MM3 Lymphocytes # (Auto) 0.8 TH/MM3 Monocytes # (Auto) 0.5 TH/MM3 Eosinophils # (Auto) 0.0 TH/MM3 Basophils # (Auto) 0.0 TH/MM3 CBC Comment DIFF FINAL Differential Comment Objective Remarks GENERAL: Very pleasant elderly white male in no acute distress. HEENT: PERRLA, EOMI. No scleral icterus or conjunctival pallor. No lid lag or facial droop. CARDIOVASCULAR: Regular rate and rhythm. No obvious murmurs to auscultation. No chest tenderness to palpation. RESPIRATORY: No obvious rhonchi or wheezing. Clear to auscultation. Breath sounds equal bilaterally. GASTROINTESTINAL: Abdomen soft, non-tender, nondistended. BS normal. MUSCULOSKELETAL: Extremities without clubbing, cyanosis. 2+ edema. No obvious deformities. Left leg with significant edema, warmth, pulses intact. NEUROLOGICAL: Awake, alert and oriented x4. No focal neurologic deficits. Moving both upper and lower extremities spontaneously. Medications and IVs Current Medications Medications (Trade) Dose Ordered Sig/Justin Route Start Time Stop Time Status Last Admin (NS Flush) 2 ml UNSCH PRN IV FLUSH 06/11/17 22:30 (NS Flush) 2 ml BID IV FLUSH 06/12/17 09:00 06/12/17 21:00 (Zofran Inj) 4 mg Q6H PRN IVP 06/11/17 22:30 (Tylenol) 650 mg Q6H PRN PO 06/11/17 22:30 ([place] 5-325 Mg) 1 tab Q4H PRN PO 06/11/17 22:30 (Morphine Inj) 2 mg Q3H PRN IV PUSH 06/11/17 22:30 (Migdalia-Colace) 1 tab BID PO 06/12/17 09:00 06/13/17 08:52 (Milk Of Magnesia Liq) 30 ml Q12H PRN PO 06/11/17 22:30 (Senokot) 17.2 mg Q12H PRN PO 06/11/17 22:30 (Dulcolax Supp) 10 mg DAILY PRN RECTAL 06/11/17 22:30 (Lactulose Liq) 30 ml DAILY PRN PO 06/11/17 22:30 (Theragran) 1 tab DAILY PO 06/12/17 09:00 06/13/17 08:52 Patient Own Medication PT OWN MED: (Osimertinib Mesyl... DAILY PO 06/12/17 09:00 Future Hold (Pepcid) 20 mg DAILY PO 06/12/17 09:00 4/8/18 08:52 Sodium Chloride 1,000 ml @ 125 mls/hr Q8H IV 06/13/17 05:00 06/13/17 05:08 (Eliquis) 5 mg BID PO 06/13/17 14:00 06/13/17 14:33 A/P Assessment and Plan (1) DVT (deep venous thrombosis) ICD Code: I82.409 - Acute embolism and thrombosis of unspecified deep veins of unspecified lower extremity Status: Acute (2) Renal insufficiency ICD Code: N28.9 - Disorder of kidney and ureter, unspecified (3) Lung cancer ICD Code: C34.90 - Malignant neoplasm of unspecified part of unspecified bronchus or lung 1. DVT: Acute. Doppler LE w/ extensive DVT of LLE, images reviewed by me, likely secondary to underling CA. Started on Heparin gtt in ER. In light of h/o Lung CA w/ WATER COMMISSIONER Mets, recommended to continue Eliquis 5 mg BID. 2. Lung CA w/ Mets: Follows w/ Dr Bennett, tapered off Decadron, plan for outpatient MRI 06/30/17, seen by environmental permitting specialist recommended future chemotherapy by [facility] Hx/Workup: The patient was originally diagnosed with lung cancer in 2014. He was treated with Tarceva until progression. In April 2017 he developed WATER COMMISSIONER metastatic disease and was treated with stereotactic radiosurgery under the care of Dr. Ridley. His most recent CT PET scan in May showed improvement of postradiation pneumonitis in the lung. He has been less active due to steroid myopathy. He presents with left lower extremity edema and pain 3. Renal Insufficiency: Acute on Chronic. Improved. DVT Prophylaxis: Eliquis Discharge Planning Discharge Home now. Khang Mendoza MD Jun 13, 2017 15:21
--- NOTE | 2017-06-13 15:23 | HHI.DS ---
Discharge Summary Admission Date Jun 11, 2017 at 22:31 Discharge Date: Jun 13, 2017 Admitting Diagnosis extensive DVT R leg (1) DVT (deep venous thrombosis) ICD Code: I82.409 - Acute embolism and thrombosis of unspecified deep veins of unspecified lower extremity Diagnosis: Principal Status: Acute (2) Renal insufficiency ICD Code: N28.9 - Disorder of kidney and ureter, unspecified Diagnosis: Principal (3) Lung cancer ICD Code: C34.90 - Malignant neoplasm of unspecified part of unspecified bronchus or lung Diagnosis: Principal Procedures None Brief History - From Admission This is a 72-year-old male with a PMH of Lung CA w/ Brain Mets who presented to the ER w/ complaints of left lower extremity pain and swelling. States symptoms started acutely today. Pain is severe, 10/10, constant, non-radiating , worse w/ movement. Denies fever, chills, chest pain, SOB or injury/trauma. Follows w/ Dr. Bennett for Lung CA, currently on Tagrisso. On arrival, BP 138/81 , HR 102, O2 sat 98% on RA, Afebrile. CBC essentially at baseline, platelets 105, previously 92 on 06/01/2017. Chemistry also at baseline, creatinine 1.31, previously 1.33 on 06/01/2017. INR 1.0. Doppler LE with extensive deep venous thrombosis. Started on Heparin gtt in ER. Pt denies previous h/o DVT. CBC/BMP: 06/13/17 1315 06/12/17 0416 Significant Findings Laboratory Tests Test 06/11/17 20:30 06/12/17 04:16 06/12/17 10:44 06/13/17 13:15 Red Blood Count 3.66 MIL/MM3 (4.50-5.90) 3.39 MIL/MM3 (4.50-5.90) 3.51 MIL/MM3 (4.50-5.90) Hemoglobin 11.0 GM/DL (13.0-17.0) 10.3 GM/DL (13.0-17.0) 10.5 GM/DL (13.0-17.0) Hematocrit 32.7 % (39.0-51.0) 30.0 % (39.0-51.0) 31.5 % (39.0-51.0) Platelet Count 105 TH/MM3 (150-450) 97 TH/MM3 (150-450) Neutrophils (%) (Auto) 77.7 % (16.0-70.0) 73.7 % (16.0-70.0) 76.9 % (16.0-70.0) Lymphocytes # (Auto) 0.7 TH/MM3 (1.0-4.8) 0.8 TH/MM3 (1.0-4.8) 0.8 TH/MM3 (1.0-4.8) Blood Urea Nitrogen 29 MG/DL (7-18) 26 MG/DL (7-18) Creatinine 1.31 MG/DL (0.60-1.30) Random Glucose 125 MG/DL (74-106) 127 MG/DL (74-106) Albumin 2.5 GM/DL (3.4-5.0) 2.0 GM/DL (3.4-5.0) Calcium Level 7.7 MG/DL (8.5-10.1) 7.6 MG/DL (8.5-10.1) Aspartate Amino Transf (AST/SGOT) 46 U/L (15-37) Estimat Glomerular Filtration Rate 53 ML/MIN (>89) 59 ML/MIN (>89) Monocytes (%) (Auto) 8.2 % (0.0-8.0) 8.5 % (0.0-8.0) Platelet Estimate LOW (NORMAL) Activated Partial Thromboplast Time 55.5 SEC (24.3-30.1) 60.4 SEC (24.3-30.1) Total Protein 5.7 GM/DL (6.4-8.2) Imaging Last Impressions Lower Extremity Ultrasound 06/11/17 0000 Signed Impressions: Service Date/Time: Sunday, June 11, 2017 21:16 - CONCLUSION: Extensive deep venous thrombosis as above. Peter Ga MD FACR Head CT 06/11/17 0000 Signed Impressions: Service Date/Time: Sunday, June 11, 2017 23:14 - CONCLUSION: Right frontal and right parietal intra-axial masses are no longer seen. Minimal residual of right parietal vasogenic edema. No mass effect. No evidence of acute intracranial hemorrhage or acute infarct. Roderick Jauregui MD PE at Discharge GENERAL: Very pleasant elderly white male in no acute distress. HEENT: PERRLA, EOMI. No scleral icterus or conjunctival pallor. No lid lag or facial droop. CARDIOVASCULAR: Regular rate and rhythm. No obvious murmurs to auscultation. No chest tenderness to palpation. RESPIRATORY: No obvious rhonchi or wheezing. Clear to auscultation. Breath sounds equal bilaterally. GASTROINTESTINAL: Abdomen soft, non-tender, nondistended. BS normal. MUSCULOSKELETAL: Extremities without clubbing, cyanosis. 2+ edema. No obvious deformities. Left leg with significant edema, warmth, pulses intact. NEUROLOGICAL: Awake, alert and oriented x4. No focal neurologic deficits. Moving both upper and lower extremities spontaneously. Hospital Course This is a 72-year-old male with a PMH of Lung CA w/ Brain Mets who presented to the ER w/ complaints of left lower extremity pain and swelling. States symptoms started acutely today. Pain is severe, 10/10, constant, non- radiating, worse w/ movement. Denies fever, chills, chest pain, SOB or injury/trauma. Follows w/ Dr. Bennett for Lung CA, currently on Tagrisso. On arrival, BP 138/81, HR 102, O2 sat 98% on RA, Afebrile. CBC essentially at baseline, platelets 105, previously 92 on 06/01/2017. Chemistry also at baseline, creatinine 1.31, previously 1.33 on 06/01/2017. INR 1.0. Doppler LE with extensive deep venous thrombosis. Started on Heparin gtt in ER. Pt denies previous h/o DVT. 06/12: Seen in his bedroom awaiting for environmental remediation specialist consult. 06/13: Stable from environmental remediation specialist standpoint, no nausea, vomit or diarrhea recommended for discharge to Home now on Eliquis. Assessment and Plan 1. DVT: Acute. Doppler LE w/ extensive DVT of LLE, images reviewed by me, likely secondary to underling CA. Started on Heparin gtt in ER. In light of h/o Lung CA w/ FAUCET POLISHER Mets, recommended to continue Eliquis 5 mg BID. 2. Lung CA w/ Mets: Follows w/ Dr Bennett, tapered off Decadron, plan for outpatient MRI 06/30/17, seen by environmental remediation specialist recommended future chemotherapy by Donald Hx/Workup: The patient was originally diagnosed with lung cancer in 2014. He was treated with Tarceva until progression. In April 2017 he developed FAUCET POLISHER metastatic disease and was treated with stereotactic radiosurgery under the care of Dr. Ridley. His most recent CT PET scan in May showed improvement of postradiation pneumonitis in the lung. He has been less active due to steroid myopathy. He presents with left lower extremity edema and pain 3. Renal Insufficiency: Acute on Chronic. Improved. DVT Prophylaxis: Eliquis Discharge Planning Discharge Home now. Pt Condition on Discharge: Good Discharge Disposition: Discharge Home Discharge Time: <= 30 minutes Discharge Instructions DIET: Follow Instructions for: As Tolerated, No Restrictions Activities you can perform: Regular-No Restrictions Khang Mendoza MD Jun 13, 2017 15:23
--- NOTE | 2017-06-13 20:03 | EKG ---
Date Performed: 06/13/2017 Time Performed: 05:18:27 PTAGE: 72 years EKG: Sinus rhythm WITH OCCASIONAL SUPRAVENTRICULAR PREMATURE COMPLEXES MARKED LEFT AXIS DEVIATION ABNORMAL ECG NO PREVIOUS TRACING DOCTOR: Wander Posada Interpretating Date/Time 06/13/2017 20:01:31
== END 2017-06-13 16:43 | disposition home or self-care (01) | DRG 300 ==
LOC: NEPC 18:50 → NEDA 22:31 → N06A 23:41
PROVIDERS: ADMIT Family Medicine; ATTEND Family Medicine
DX: I82.412 Acute embolism and thrombosis of left femoral vein (principal); C34.90 Malignant neoplasm of unspecified part of unspecified bronchus or lung; C79.31 Secondary malignant neoplasm of brain; N28.9 Disorder of kidney and ureter, unspecified; Z85.46 Personal history of malignant neoplasm of prostate
CPT/HCPCS: 70450; 80053; 85025; 85610; 85730; 93005; 93971; 96365; 96375; J1644; J1650; J7030; J7040